=== PATIENT | female | born 1990 | race Caucasian/White ===

== ENCOUNTER 2016-06-23 11:29 | Outpatient (CLI) | payer OTHER, MEDICAID | END 2016-06-23 11:30 | disposition home or self-care (01) | DX: M25.561 Pain in right knee (principal) ==

== ENCOUNTER 2016-08-04 10:52 | Outpatient (CLI) | payer OTHER | END 2016-08-04 10:53 | disposition home or self-care (01) | DX: M25.561 Pain in right knee (principal) ==

== ENCOUNTER 2016-08-11 16:25 | Outpatient (CLI) | payer OTHER, MEDICAID | END 2016-08-11 16:26 | disposition home or self-care (01) | DX: M67.431 Ganglion, right wrist (principal); R60.0 Localized edema ==

== ENCOUNTER 2016-09-07 12:35 | Day surgery (SDC) | payer OTHER, MEDICAID ==
[2016-09-07] MEDS ORDERED: ceFAZolin 1 GM VIAL ONE (12:44)
[2016-09-07] MEDS ORDERED: LACTATED RINGERS 1,000 ML IV ONE ×2 (12:53→14:40)
[2016-09-07] MEDS ORDERED: SCOPOLAMINE PATCH TOP ONE (13:09)
[2016-09-07] MEDS ORDERED: BUPIVACAINE 0.25%-EPI 1:200000 PF 30 ML VIAL SUBQ ONE ×2 (13:09→14:13)
[2016-09-07] MEDS ORDERED: LIDOCAINE-MPF 2% 5 ML VIAL IM ONE (13:53)
[2016-09-07] MEDS ORDERED: ONDANSETRON 4 MG/2 ML VIAL IVP ONE (13:53)
[2016-09-07] MEDS ORDERED: DEXAMETHASONE 4 MG/ML VIAL IVP ONE (13:53)
[2016-09-07] MEDS ORDERED: METOCLOPRAMIDE 10 MG/2 ML VIAL IVP ONE (13:53)
[2016-09-07] MEDS ORDERED: fentaNYL 100 MCG/2 ML VIAL IVP ONE (13:53)
[2016-09-07] MEDS ORDERED: PROPOFOL 200 MG/20 ML VIAL IVP ONE (13:53)
[2016-09-07] MEDS ORDERED: KETOROLAC 30 MG/ML VIAL IVP ONE (13:53)
[2016-09-07] MEDS ORDERED: MIDAZOLAM 2 MG/2 ML VIAL IVP ONE (13:53)
[2016-09-07] MEDS ORDERED: PHENYLEPHRINE 50 MG/5 ML VIAL IV ONE (13:53)
[2016-09-07] MEDS: HYDROmorphone 1 MG/ML SYRINGE ONE ×2 (14:25→14:33)
[2016-09-07] MEDS ORDERED: oxyCOD/ACETAMIN 5 MG/325 MG TABLET PO ONE (15:19)
== END 2016-09-07 12:36 | disposition home or self-care (01) ==
PROC: 0HBDXZZ Excision of Right Lower Arm Skin, External Approach (ICD-10-PCS; 2016-09-07)
PROC: 0LB50ZZ Excision of Right Lower Arm and Wrist Tendon, Open Approach (ICD-10-PCS; principal; 2016-09-07 13:55)
DX: M67.431 Ganglion, right wrist (principal); L91.0 Hypertrophic scar; E66.9 Obesity, unspecified; F41.9 Anxiety disorder, unspecified; Z68.37 Body mass index [BMI] 37.0-37.9, adult
CPT/HCPCS: 11402; 25112; 81025; A9270; J1170; J3490; J7120